=== PATIENT | female | born 1995 | race Two or more races ===

== ENCOUNTER 2019-02-27 20:28 | Emergency (ER) | payer BC ==
[~2019-02-27] VITALS: Ht 177.8 cm; Wt 111.1 kg
[2019-02-27 21:28] LABS: BASO % 0 % (0-3); EOS # 0.1 x10^3/uL (0.0-0.7); EOS % 1 % (0-3); HEMATOCRIT 41.6 % (36.0-47.0); HEMOGLOBIN 14.2 g/dL (12.0-15.5); LYMPH # 2.6 x10^3/uL (1.0-4.8); LYMPH % 26 % (24-48); MEAN CORPUSCULAR HEMOGLOBIN 29 pg (25-35); MEAN CORPUSCULAR HGB CONC 34 g/dL (31-37); MEAN CORPUSCULAR VOLUME 86 fL (79-100); MONO # 0.7 x10^3/uL (0.0-1.1); MONO % 7 % (0-9); NEUT # 6.9 x10^3/uL (1.8-7.7); NEUT % 67 % (31-73); PLATELET COUNT 247 x10^3/uL (140-400); RED BLOOD COUNT 4.85 x10^6/uL (3.50-5.40); RED CELL DISTRIBUTION WIDTH 14.7 % (11.5-14.5); WHITE BLOOD COUNT 10.3 x10^3/uL (4.0-11.0)
[2019-02-27 21:30] LABS: BILIRUBIN,URINE NEGATIVE (NEG); CLARITY,URINE CLEAR; COLOR,URINE YELLOW; NITRITE,URINE NEGATIVE (NEG); PH,URINE 7.5; PROTEIN,URINE NEGATIVE (NEG-TRACE)
[2019-02-27 21:35] LABS: AMORPHOUS SEDIMENT,UR PRESENT /HPF; SQUAMOUS EPITHELIAL CELL,UR MANY /LPF
[2019-02-27 21:36] LABS: BACTERIA,URINE 0 /HPF (0-FEW); RBC,URINE OCC /HPF (0-2); WBC,URINE OCC /HPF (0-4)
[2019-02-27 21:45] LABS: PREG TEST PT QUAL NEGATIVE (NEG)
[2019-02-27 21:47] LABS: CALCIUM 8.7 mg/dL (8.5-10.1); CREATININE 0.9 mg/dL (0.6-1.0); GFR 77.6; POTASSIUM 3.5 mmol/L (3.5-5.1)
[2019-02-27 21:50] LABS: ALBUMIN 3.6 g/dL (3.4-5.0); TOTAL BILIRUBIN 0.5 mg/dL (0.2-1.0); TOTAL PROTEIN 7.3 g/dL (6.4-8.2)
[2019-02-27] MEDS ORDERED: fentaNYL PF VIAL 100 MCG/2 ML VIAL IV ONE (22:00)
[2019-02-27] MEDS ORDERED: ONDANSETRON PF 4 MG/2 ML VIAL. IV ONE (22:00)
[2019-02-27 23:18] VITALS: BP 132/76
[2019-02-27] MEDS ORDERED: TRAM50TA PO (23:36)
--- NOTE | 2019-02-27 23:36 | PHYS DOC ---
Past Medical History Past Medical History: No Pertinent History Past Surgical History: Other Additional Past Surgical Histo: Oral sx Alcohol Use: None Drug Use: None Adult General Chief Complaint Chief Complaint: ABDOMINAL PAIN HPI HPI Patient is a 23 year old female who presents with diffuse suprapubic/right lower quadrant pain intermittent for the past several hours. Pain is rated moderate to severe it is worse with palpation, ambulation and lying on right side. He is partial improvement with lying in left lateral recumbent position. Denies fevers chills, nausea vomiting. No urinary frequency urgency hematuria or flank pain. No diarrhea. No vaginal bleeding or discharge. Last menstrual period was 10 days ago. No prior abdominal surgeries. [] Review of Systems Review of Systems Review symptoms as per history of present illness. All other review symptoms are negative. All other systems were reviewed and found to be within normal limits, except as documented in this note. Current Medications Current Medications Current Medications Medications (Trade) Dose Ordered Sig/Shauna Start Time Stop Time Status Last Admin Dose Admin Fentanyl Citrate (Fentanyl 2ml Vial) 50 mcg 1X ONCE 02/27/19 22:00 02/27/19 22:01 DC 02/27/19 21:34 50 MCG Ondansetron HCl (Zofran) 4 mg 1X ONCE 02/27/19 22:00 02/27/19 22:01 DC 02/27/19 21:34 4 MG Allergies Allergies Allergies Coded Allergies Type Severity Reaction Last Updated Verified No Known Drug Allergies 02/27/19 No Physical Exam Physical Exam Constitutional: Well developed, well nourished, no acute distress, non-toxic appearance. [] HENT: Normocephalic, atraumatic, bilateral external ears normal, oropharynx moist, no oral exudates, nose normal. [] Eyes: PERRLA, EOMI, conjunctiva normal, no discharge. [] Neck: Normal range of motion, no tenderness, supple, no stridor. [] Cardiovascular:Heart rate regular rhythm, no murmur [] Lungs & Thorax: Bilateral breath sounds clear to auscultation [] Abdomen: Bowel sounds normal, soft, suprapubic pain, tenderness.. [] Skin: Warm, dry, no erythema, no rash.. [] Neurologic: Alert and oriented X 3, normal motor function, normal sensory function, no focal deficits noted. [] Psychologic: Affect normal, judgement normal, mood normal. [] Current Patient Data Vital Signs Vital Signs Date Time Temp Pulse Resp B/P (MAP) Pulse Ox O2 Delivery O2 Flow Rate FiO2 02/27/19 21:34 99 Room Air 02/27/19 21:18 64 117/71 (86) 02/27/19 20:40 97.9 14 97.9 Lab Values Laboratory Tests Test 02/27/19 20:43 02/27/19 21:00 POC Urine HCG, Qualitative Hcg negative (Negative) White Blood Count 10.3 x10^3/uL (4.0-11.0) Red Blood Count 4.85 x10^6/uL (3.50-5.40) Hemoglobin 14.2 g/dL (12.0-15.5) Hematocrit 41.6 % (36.0-47.0) Mean Corpuscular Volume 86 fL (79-100) Mean Corpuscular Hemoglobin 29 pg (25-35) Mean Corpuscular Hemoglobin Concent 34 g/dL (31-37) Red Cell Distribution Width 14.7 % (11.5-14.5) H Platelet Count 247 x10^3/uL (140-400) Neutrophils (%) (Auto) 67 % (31-73) Lymphocytes (%) (Auto) 26 % (24-48) Monocytes (%) (Auto) 7 % (0-9) Eosinophils (%) (Auto) 1 % (0-3) Basophils (%) (Auto) 0 % (0-3) Neutrophils # (Auto) 6.9 x10^3/uL (1.8-7.7) Lymphocytes # (Auto) 2.6 x10^3/uL (1.0-4.8) Monocytes # (Auto) 0.7 x10^3/uL (0.0-1.1) Eosinophils # (Auto) 0.1 x10^3/uL (0.0-0.7) Basophils # (Auto) 0.0 x10^3/uL (0.0-0.2) Urine Collection Type Unknown Urine Color Yellow Urine Clarity Clear Urine pH 7.5 Urine Specific [place] 1.025 Urine Protein Negative mg/dL (NEG-TRACE) Urine Glucose (UA) Negative mg/dL (NEG) Urine Ketones (Stick) Negative mg/dL (NEG) Urine Blood Negative (NEG) Urine Nitrite Negative (NEG) Urine Bilirubin Negative (NEG) Urine Urobilinogen Dipstick 1.0 mg/dL (0.2 mg/dL) Urine Leukocyte Esterase Negative (NEG) Urine RBC Occ /HPF (0-2) Urine WBC Occ /HPF (0-4) Urine Squamous Epithelial Cells Many /LPF Urine Amorphous Sediment Present /HPF Urine Bacteria 0 /HPF (0-FEW) Urine Mucus Marked /LPF Sodium Level 139 mmol/L (136-145) Potassium Level 3.5 mmol/L (3.5-5.1) Chloride Level 103 mmol/L (98-107) Carbon Dioxide Level 27 mmol/L (21-32) Anion Gap 9 (6-14) Blood Urea Nitrogen 9 mg/dL (7-20) Creatinine 0.9 mg/dL (0.6-1.0) Estimated GFR (Cockcroft-Gault) 77.6 BUN/Creatinine Ratio 10 (6-20) Glucose Level 93 mg/dL (70-99) Calcium Level 8.7 mg/dL (8.5-10.1) Total Bilirubin 0.5 mg/dL (0.2-1.0) Aspartate Amino Transferase (AST) 16 U/L (15-37) Alanine Aminotransferase (ALT) 20 U/L (14-59) Alkaline Phosphatase 82 U/L (46-116) Total Protein 7.3 g/dL (6.4-8.2) Albumin 3.6 g/dL (3.4-5.0) Albumin/Globulin Ratio 1.0 (1.0-1.7) Lipase 93 U/L (73-393) Serum Test, Qualitative Negative (NEG) Laboratory Tests 02/27/19 21:00 Laboratory Tests 02/27/19 21:00 EKG EKG [] Radiology/Procedures Radiology/Procedures [Pelvic ultrasound: Complex right ovarian mass on preliminary ultrasound reviewed] Course & Med Decision Making Course & Med Decision Making Pertinent Labs and Imaging studies reviewed. (See chart for details) [Complex ovarian mass concerning for possible malignancy. Lab unremarkable. Symptoms improved with treatment. This is a known mass according to patient that has been R evaluated by her PCP and is awaiting gynecology/oncology referral. Patient instructed to contact her PCP tomorrow to confirm production support consultant appointment. In the interim, neeta treat pain. Return precautions reviewed.] Dragon Disclaimer Dragon Disclaimer This electronic medical record was generated, in whole or in part, using a voice recognition dictation system. Departure Departure Impression: Primary Impression: Pelvic pain Additional Impression: Ovarian mass, right Disposition: 01 HOME, SELF-CARE Condition: STABLE Referrals: SANJANA ARRINGTON DO (PCP) Patient Instructions: Ovarian Tumors Additional Instructions: You were evaluated in the emergency department for pelvic pain. Lab and ultrasounds were performed. Ultrasound shows the presence of a 12 cm complex R ovarian mass which may represent tumor and requires urgent chronic logical follow-up. Please contact your PCPs office tomorrow in confirm outpatient follow-up consultation. In the meantime, take Tylenol and tramadol as needed for pain. Scripts Tramadol Hcl (TRAMADOL HCL) 50 Mg Tablet 50 MG PO Q6H PRN for PAIN for 3 Days, #15 TAB 0 Refills Prov: CHLOE GR DO 02/27/19 Problem Qualifiers CHLOE GR DO Feb 27, 2019 23:36
--- NOTE | 2019-02-27 23:53 | RAD ---
EXAM: Pelvic ultrasound HISTORY: Pelvic pain. Pelvic mass. COMPARISON: None. FINDINGS: Sonographic evaluation of the pelvis was performed transabdominally and transvaginally. The uterus is anteverted and measures 8.7 x 5.2 x 4.1 cm. The endometrial stripe measures 7 mm. An intrauterine device is noted. There is a small amount of in endocervical fluid. No uterine masses are identified. There is no significant free fluid. There is a heterogeneous cystic and solid mass in the right ovary. Altogether it measures 7.2 x 11.0 x 8.6 cm. A 5.3 cm portion is hyperechoic. The left ovary measures 4.4 x 3.7 x 3.1 cm. It contains a dominant follicle measuring 3.2 cm. There is normal Doppler flow bilaterally. There are no suspicious lesions. IMPRESSION: 1. A heterogeneous mass in the right adnexa measures 11 cm. This may represent a dermoid but is indeterminate. CT could further characterize if the diagnosis is not already known. Electronically signed by: Shaquille Cleveland MD (02/27/2019 11:50 PM) [facility]
== END 2019-02-27 23:53 | disposition home or self-care (01) ==
LOC: ER 20:28
DX: N83.9 Noninflammatory disorder of ovary, fallopian tube and broad ligament, unspecified (principal)
CPT/HCPCS: 36415; 76856; 80053; 81001; 81025; 83690; 84703; 85025; 96374; 96375; 99285; J2405; J3010

== ENCOUNTER 2019-03-23 06:12 | Inpatient (IN) | payer BC ==
[~2019-03-23] VITALS: Ht 177.8 cm; Wt 110.0 kg
[2019-03-23] VITALS (10 sets, daily range): BP systolic 114–124; BP diastolic 60–78
[~2019-03-23 06:12] MED LIST: TRAM50TA PO
[2019-03-23] MEDS ORDERED: ONDANSETRON PF 4 MG/2 ML VIAL. IV PRN ×2 (07:00→09:45)
[2019-03-23] MEDS ORDERED: MORPHINE SULFATE 2 MG/ML VIAL. IV PRN ×2 (07:00→09:45)
[2019-03-23] MEDS ORDERED: LIDOCAINE 1% PF 2 ML VIAL. ID PRN (07:00)
[2019-03-23] MEDS ORDERED: HYDROmorphone 2 MG/ML VIAL IV PRN (07:00)
[2019-03-23] MEDS ORDERED: IV RINGERS,LACTATED 1000ML 1,000 ML IV SCH (07:00)
[2019-03-23] MEDS ORDERED: PROCHLORPERAZINE 10 MG/2 ML VIAL. IV PRN (07:00)
[2019-03-23] MEDS ORDERED: ROCURONIUM 50 MG/5 ML VIAL. ONE (07:06)
[2019-03-23] MEDS ORDERED: SUCCINYLCHOLINE 200 MG/10 ML VIAL. ONE (07:06)
[2019-03-23] MEDS ORDERED: LIDOCAINE 2% PF 5 ML VIAL. ONE (07:06)
[2019-03-23] MEDS ORDERED: fentaNYL PF VIAL 100 MCG/2 ML VIAL ONE ×2 (07:06→08:06)
[2019-03-23] MEDS ORDERED: PROPOFOL 20 ML IV ONE (07:06)
[2019-03-23] MEDS ORDERED: diphenhydrAMINE 50 MG/ML VIAL ONE (07:57)
[2019-03-23] MEDS ORDERED: FAMOTIDINE 20 MG/2 ML VIAL ONE (07:57)
[2019-03-23] MEDS ORDERED: DESFLURANE 61 TO 120 MINUTES IH ONE (07:57)
[2019-03-23] MEDS ORDERED: DEXAMETHASONE SOD PHOS 4 MG/ML VIAL ONE (07:57)
[2019-03-23] MEDS ORDERED: NEOSTIGMINE METHYLSULFATE 5 MG/5 ML SYRINGE. ONE (08:14)
[2019-03-23] MEDS ORDERED: GLYCOPYRROLATE 1 MG/5 ML VIAL. ONE (08:14)
--- NOTE | 2019-03-23 09:40 | PDOC ---
BRIEF OPERATIVE NOTE Date: Mar 23, 2019 Pre-Op Diagnosis bilateral ovarian masses, vaginal bleeding, pelvic pain Post-Op Diagnosis same, bilateral dermoids Procedure Performed operative laparatomy with excision of bilateral ovarian masses Surgeon Dr. Lucie Arias Sales Ledger Administrator ABIGAIL Alvarez Anesthesiologist Dr. Ji Anesthesia Type: General Blood Loss 100cc IV Fluid 1100cc Urine Output 175cc Specimens Obtained bilateral dermoids Findings 14cm right ovarian mass, 4cm left ovarian mass, normal uterus and bilateral tubes Complications none Operative Note [id number] LUCIE ARIAS MD Mar 23, 2019 09:40
[2019-03-23] MEDS: fentaNYL PF VIAL 100 MCG/2 ML VIAL IV PRN ×5 (09:43→10:21)
[2019-03-23] MEDS ORDERED: SIMETHICONE 80 MG TAB.CHEW PO PRN (09:45)
[2019-03-23] MEDS ORDERED: CALCIUM CARBONATE 500 MG TAB.CHEW PO PRN (09:45)
[2019-03-23] MEDS ORDERED: diphenhydrAMINE HCL 25 MG CAPSULE PO PRN (09:45)
[2019-03-23] MEDS ORDERED: MAGNESIUM HYDROXIDE 2,400 MG/30 ML ORAL.SUSP. PO PRN (09:45)
[2019-03-23] MEDS ORDERED: NALOXONE 0.4 MG/ML VIAL. IV PRN (09:45)
[2019-03-23] MEDS ORDERED: 0.9 % SODIUM CHLORIDE 10 ML DISP.SYRIN. IV PRN (09:45)
[2019-03-23] MEDS ORDERED: LACTULOSE 20 GM/30 ML SOLUTION. PO PRN (09:45)
[2019-03-23] MEDS ORDERED: ZOLPIDEM 5 MG TABLET. PO PRN (09:45)
[2019-03-23] MEDS ORDERED: MAG HYDROX/ALUMINUM HYD/SIMETH 30 ML ORAL.SUSP PO PRN (09:45)
[2019-03-23] MEDS ORDERED: diphenhydrAMINE 50 MG/ML VIAL IV PRN (09:45)
--- NOTE | 2019-03-23 10:53 | OP ---
DATE OF SURGERY: 03/23/2019 PREOPERATIVE DIAGNOSES: Bilateral ovarian masses, vaginal bleeding and pelvic pain. POSTOPERATIVE DIAGNOSES: Bilateral ovarian masses, vaginal bleeding and pelvic pain with bilateral dermoids on her ovaries. PROCEDURE: Operative laparotomy with excision of bilateral ovarian masses. SURGEON: Vidal Estrada MD EDITOR MANAGING NEWSPAPER: ABIGAIL Rivera. ANESTHESIA: General. ANESTHESIOLOGIST: Dawit Ji MD ESTIMATED BLOOD LOSS: 100 mL. URINE OUTPUT: 175 mL clear via Herring catheter. INTRAVENOUS FLUIDS: 1100 mL of Crystalloid. SPECIMENS: Bilateral ovarian masses removed consistent with dermoid tumors. FINDINGS: She had a 14 cm right ovarian mass and a 4 cm left ovarian mass. Normal uterus and normal bilateral tubes. COMPLICATIONS: None. DESCRIPTION OF PROCEDURE: This patient was taken to the operating room where general anesthesia was placed. The patient was placed in a dorsal supine position. The patient's abdomen was prepped and draped in the normal sterile fashion and a Herring catheter had been inserted under sterile technique. Upon my arrival, a timeout was performed. She had already received her preoperative antibiotics. Once everyone agreed, a transverse Pfannenstiel skin incision was made with the scalpel. It was carried down to the underlying layer to the fascia. A Bovie cautery was used to obtain hemostasis in the subcuticular layer. The fascia was scored in the midline and extended sharply and bluntly bilaterally both tube both corners. La clamps x 2 were placed on the superior fascial edge where the rectus muscles were dissected from the fascia sharply and bluntly beneath. This was done inferiorly as well. The rectus muscles were then in the midline digitally and the peritoneum was digitally and bluntly entered high near the umbilical area. It was digitally and bluntly stretched. The Metzenbaum scissors were used to take it down under direct visualization. Upon initial entry with a right ovarian mass that was very enlarged was easily found palpated and popped through this abdominal incision. We just used a moist towel to pack away the bowel and we operated immediately on this as we could see the infundibulopelvic ligament coming in. I scored around what appeared to be normal ovarian tissue and was able to shell out this 14 x 10.5 x 5.5 cm right ovarian mass that was shelled out in total. The peritoneum serosal surface was trimmed off. The deep ovarian tissue was brought together with 0 Vicryl and then superficial serosal one brought together the ovarian tissue edges and it came back together nicely with minimal bleeding, normal ovary. Once this was done, I did go ahead and packed the bowel away with a couple moist laps. Put in an O'Jake-O'Licea retractor, put in a bladder blade because the left one was smaller and we could see it, but it was not as easy to pop through the abdominal incision and get away from the bowel, so I packed her and put the O'Jake-O'Licea with the bladder blade. Once this was done, finding again the infundibulopelvic ligament where the normal ovarian tissue should be coming in, the left one was actually harder to find normal ovarian tissue with smaller mass than the right one with larger mass was, but I went right above what appeared to be the normal white tissue above the IP ligament, made an incision with the cautery and peeled off the cyst off this ovary as well. This one did open initially with some clear serous fluid, but then the mucousy stuff and a little bit of black hair was seen. It was all kept above a lap, a lap was below the ovary, so we did keep the abdomen clean and more able to suck it out and clean it out immediately. Once it was opened up and removed, the pickups were used to easily peel off the ovarian cyst wall and get the entire dermoid off of this left ovary. I irrigated the pelvis very copiously as well. This wound was closed with 3-0 chromic deep and then again bringing back the top level of the ovarian tissue as well the serosal edges and it was hemostatic as well. Once copious irrigation was done and everything was hemostatic, the laps were taken out. The O'Jake-O'Licea and bladder blade were taken out and it was reexamined again in the pelvis, making sure the cul-de-sac was dry and there was no bleeding from the bilateral ovarian suture nascimento on the ovaries. Everything looked good. All sponge, lap and needle counts, especially the packing sponges were correct before closing. The rectus muscles were examined and found to be hemostatic, I looked one more time before closing at the ovarian tissue and it was hemostatic, nothing building up in the cul-de-sac at all. So at this point, 0-Vicryl was taken from the left corner, pass the midline and then the right corner and met it in the middle and tied them together. The subcutaneous was irrigated, 3-0 Vicryl was used to close the Akash's in subcuticular layer. Bovie cautery was used on this layer as well for hemostasis and then jurgen were used on the skin. Again all sponge, lap and needle counts were correct x 2 by OR personnel. The patient was awakened from anesthesia and brought to recovery room in stable condition. VIDAL ESTRADA MD DR: CAMILA/nicolas JOB#: [id number] / [id number]
[2019-03-23] MEDS: HYDROcodone/APAP 5/325MG 1 TAB TABLET PO PRN ×2 (17:13→21:05)
[2019-03-24 01:55] VITALS: BP 112/60
--- NOTE | 2019-03-24 06:20 | NUR ---
States she slept well. Denies pain at present. Herring discontinued. Dangled at side of bed for 5 min then up to chair, became dizzy and pale, returned to bed.
[2019-03-24 06:43] VITALS: BP 119/69
[2019-03-24 08:31] LABS: CALCIUM 8.6 mg/dL (8.5-10.1); CREATININE 0.9 mg/dL (0.6-1.0); GFR 77.6; POTASSIUM 3.6 mmol/L (3.5-5.1)
--- NOTE | 2019-03-24 08:31 | PDOC ---
SURGICAL PROGRESS NOTE Subjective Doing well. Catheter out early this morning but has not peed yet. Tolerating PO without n/v. Slightly dizzy when first got up but ok laying and sitting. Pain well controlled and has ice pack on abdomen during exam this morning. Vital Signs Vital Signs Date Time Temp Pulse Resp B/P (MAP) Pulse Ox O2 Delivery O2 Flow Rate FiO2 03/24/19 06:43 98.1 67 20 119/69 (86) 97 Room Air 98.1 03/23/19 10:45 I&O Intake and Output 03/24/19 06:59 Intake Total 4158 ml Output Total 4975 ml Balance -817 ml Intake Oral 1630 ml IV Total 1850 ml Other 678 ml Output Urine Total 4875 ml Estimated Blood Loss 100 ml PATIENT HAS A FREGOSO: No General: Alert, Oriented X3, Cooperative, No acute distress HEENT: Atraumatic Heart: Regular rate Abdomen: Soft, Other (mildly TTP, incision c/d/i with jurgen) Extremities: No clubbing, No cyanosis, No edema, No tenderness/swelling Skin: No rashes, No breakdown Neuro: Normal speech Psych/Mental Status: Mental status NL, Mood NL Labs Laboratory Tests Test 03/23/19 06:29 Bedside Urine HCG, Qualitative Hcg negative (Negative) I have reviewed the following labs, vitals, nursing Cardiovascular: No pertinent hx GI: No pertinent hx Heme/Onc: No pertinent hx Rheumatologic: No pertinent hx Assessment/Plan POD#1 s/p operative laparatomy with excision of bilateral ovarian dermoid masses Routine PO care ambulate today await morning labs advance diet as tolerated likely home tomorrow VIDAL ARIAS MD Mar 24, 2019 08:31
[2019-03-24 11:07] VITALS: BP 118/64
[2019-03-24] MEDS: oxyCODONE/APAP 5/325 1 TAB TABLET PO PRN ×2 (14:24→21:24)
[2019-03-24 18:22] VITALS: BP 109/74
[2019-03-24 21:05] VITALS: BP 119/78
[2019-03-25 05:24] VITALS: BP 116/62
--- NOTE | 2019-03-25 08:52 | PDOC ---
SURGICAL PROGRESS NOTE Subjective Doing well without complaints. Tolerating regular diet without N/v. ambulating ok. Voiding without catheter. Wants to go home Vital Signs Vital Signs Date Time Temp Pulse Resp B/P (MAP) Pulse Ox O2 Delivery O2 Flow Rate FiO2 03/25/19 06:11 18 03/25/19 05:24 98.8 72 116/62 (80) 99 Room Air 98.8 I&O Intake and Output 03/25/19 06:59 Intake Total 360 ml Output Total 450 ml Balance -90 ml Intake Oral 360 ml Output Urine Total 450 ml # Voids 1 PATIENT HAS A FREGOSO: No General: Alert, Oriented X3, Cooperative, No acute distress HEENT: Atraumatic Heart: Regular rate Abdomen: Soft, No tenderness, Other (incision c/d/i with jurgen) Extremities: No clubbing, No cyanosis, No edema, No tenderness/swelling Skin: No rashes, No breakdown, No significant lesion Neuro: Normal speech Psych/Mental Status: Mental status NL, Mood NL Labs Laboratory Tests Test 03/24/19 07:35 Hematocrit 38.3 % (36.0-47.0) Sodium Level 142 mmol/L (136-145) Potassium Level 3.6 mmol/L (3.5-5.1) Chloride Level 106 mmol/L (98-107) Carbon Dioxide Level 27 mmol/L (21-32) Anion Gap 9 (6-14) Blood Urea Nitrogen 8 mg/dL (7-20) Creatinine 0.9 mg/dL (0.6-1.0) Estimated GFR (Cockcroft-Gault) 77.6 Glucose Level 107 mg/dL (70-99) Calcium Level 8.6 mg/dL (8.5-10.1) I have reviewed the following labs, vitals, nursing Cardiovascular: No pertinent hx Pulmonary: No pertinent hx GI: No pertinent hx Heme/Onc: No pertinent hx Problem List bilateral dermoid ovarian masses Assessment/Plan POD#2 s/p operative laparatomy with excision of bilateral ovarian masses Routine PO care d/c to home today NPV x 3-4 weeks light/limited activity x [address] while on narcotic pain meds pt already has pain meds filled at home ok for OTC ibuprofen as needed as well keep scheduled follow up with me in one week call or return sooner for any other questions not limited to but including pain unrelieved with pain meds or T>100.4 VIDAL ARIAS MD Mar 25, 2019 08:52
--- NOTE | 2019-03-25 08:55 | PDOC3 ---
Discharge Summary Visit Information Date of Admission: Mar 23, 2019 Date of Discharge: Mar 25, 2019 Final Diagnosis bilateral ovarian dermoid masses Brief Hospital Course Allergies Allergies Coded Allergies Type Severity Reaction Last Updated Verified No Known Drug Allergies 03/23/19 No Vital Signs Vital Signs Date Time Temp Pulse Resp B/P (MAP) Pulse Ox O2 Delivery O2 Flow Rate FiO2 03/25/19 06:11 18 03/25/19 05:24 98.8 72 116/62 (80) 99 Room Air 98.8 Lab Results Laboratory Tests Test 03/24/19 07:35 Hematocrit 38.3 % (36.0-47.0) Sodium Level 142 mmol/L (136-145) Potassium Level 3.6 mmol/L (3.5-5.1) Chloride Level 106 mmol/L (98-107) Carbon Dioxide Level 27 mmol/L (21-32) Anion Gap 9 (6-14) Blood Urea Nitrogen 8 mg/dL (7-20) Creatinine 0.9 mg/dL (0.6-1.0) Estimated GFR (Cockcroft-Gault) 77.6 Glucose Level 107 mg/dL (70-99) Calcium Level 8.6 mg/dL (8.5-10.1) Brief Hospital Course Ms. Wilson is a 23 old female who presented with pelvic pain and bilateral large ovarian masses. She underwent an operative laparatomy with excision of the bilateral ovarian masses thursday without complications. She has had an unremarkable postoperative course and has remained AFVSS, hgb postop is good, ambulating ok, voiding without catheter, tolerating regular diet. She will be d/c to home later today Assessment Assessment POD#2 s/p operative laparatomy with excision of bilateral ovarian masses Routine PO care d/c to home today NPV x 3-4 weeks light/limited activity x [address] while on narcotic pain meds pt already has pain meds filled at home ok for OTC ibuprofen as needed as well keep scheduled follow up with me in one week call or return sooner for any other questions not limited to but including pain unrelieved with pain meds or T>100.4 Discharge Information Condition at Discharge: Improved Follow Up: Weeks Disposition/Orders: D/C to Home Scheduled Info (No Known Medications Prior To Admisstion) Each, 1 EACH MC DAILY for NO, (Reported) Entered as Reported by: JASS DÍAZ on 03/23/19703 Last Action: New Order on 03/23/19703 by JASS DÍAZ Patient Instructions Patient Instructions POD#2 s/p operative laparatomy with excision of bilateral ovarian masses Routine PO care d/c to home today NPV x 3-4 weeks light/limited activity x [address] while on narcotic pain meds pt already has pain meds filled at home ok for OTC ibuprofen as needed as well keep scheduled follow up with me in one week call or return sooner for any other questions not limited to but including pain unrelieved with pain meds or T>100.4 VIDAL ARIAS MD Mar 25, 2019 08:55
[2019-03-25] MEDS: oxyCODONE/APAP 5/325 1 TAB TABLET PO PRN ×2 (09:40→09:51)
[2019-03-25 11:00] VITALS: BP 137/78
[2019-03-25] MEDS ORDERED: IBUPROFEN 400 MG TABLET. PO PRN (11:30)
--- NOTE | 2019-03-25 14:24 | NUR ---
Discharge Discharge instructions given to patient at this time, no questions or concerns noted. Patient to follow up with DR Estrada next Thursday. Patient ambulated off unit with her and all her belongings.
--- NOTE | 2019-03-25 15:07 | PATHOLOGY ---
[facility] Accession Number: [id number] . 01 Material submitted: . PART A: ovary - RIGHT OVARIAN MASS. Modifiers: right PART B: ovary - LEFT OVARIAN MASS. Modifiers: left . 01 Clinical history: . Ovarian mass . 02 Diagnosis: A. "Right ovarian mass": - Mature cystic teratoma. - Negative for malignancy. . B. "Left ovarian mass": - Mature cystic teratoma. - Negative for malignancy. . (MAP:[facility]; 03/25/2019) . Co-review: Dr. Olson. MBR 03/25/2019 1020 Local . 02 Electronically signed: . Johan Francis MD, Pathologist NPI- [id number] . 01 Gross description: . A. The specimen is received in formalin, labeled "Grace Wilson, right ovarian mass" and consists of an intact fluctuant pink-coles cystic mass weighing 380 g and measuring 13.0 x 9.8 x 4.6 cm. Opening reveals the cystic mass contains abundant hair as well as soft friable white-coles material. The cyst lining is smooth pink-coles with no papillary excrescences and a wall thickness ranging from 0.1-0.7 cm. There is a central protuberance of bony/cartilaginous pink-coles tissue. Salesperson Stereo Equipment sections are submitted in A1-A5. . B. The specimen is received in formalin, labeled "Grace Wilson, left ovarian mass" and consists of a 10 g ovarian mass received in 2 fluctuant segments measuring 2.5 x 1.6 x 1.5 cm and 3.8 x 2.5 x 1.8 cm. The surfaces are pink-coles and multicystic. Sectioning reveals cut surfaces which vary from soft pink-coles to cystic containing white sebaceous/friable material and hair. Also present is a focus of pink-coles polypoid cartilaginous/bony tissue. The wall ranges from 0.1-0.4 cm thick and no papillary excrescences are identified. No additional masses or lesions are identified. Salesperson Stereo Equipment sections are submitted in B1-B3. (SDY; 03/23/2019) SYU/SYU 03/25/2019 1019 Local . 02 Pathologist provided ICD-10: D39.11, D39.12 . 02 CPT . 967981, 002081 Specimen Comment: A courtesy copy of this report has been sent to Specimen Comment: [phone], . Specimen Comment: Report sent to / DR ARRINGTON Performed at: 01 [facility] [address], [place] [id number] MD Gerson Casiano MD Phone: [phone] Performed at: 02 [facility] [address] [place], [place] [id number] MD Beny Roberts MD Phone: [phone]
== END 2019-03-25 14:27 | disposition home or self-care (01) | DRG 743 ==
LOC: OPSVCIP 06:12 → EDSTATUS 07:30 → 3 NORTH 10:45
PROVIDERS: ADMIT Obstetrics & Gynecology; ATTEND Obstetrics & Gynecology
PROC: 0UB20ZZ Excision of Bilateral Ovaries, Open Approach (ICD-10-PCS; principal; 2019-03-23 07:30)
DX: D27.1 Benign neoplasm of left ovary (principal); N83.8 Other noninflammatory disorders of ovary, fallopian tube and broad ligament; D27.0 Benign neoplasm of right ovary; N93.9 Abnormal uterine and vaginal bleeding, unspecified; E66.9 Obesity, unspecified; Z83.3 Family history of diabetes mellitus; Z82.49 Family history of ischemic heart disease and other diseases of the circulatory system
CPT/HCPCS: 36415; 80048; 81025; 85014; 86850; 86900; 86901; A7015; J0330; J0696; J1100; J1200; J2001; J2270; J2405; J2704; J2710; J3010; J3490; J7120; G0378